=== PATIENT | male | born 1985 | race Two or more races ===

== ENCOUNTER 2021-08-07 19:53 | Emergency (ER) | payer OTHER ==
[~2021-08-07] VITALS: Ht 170.2 cm; Wt 90.7 kg
--- NOTE | 2021-08-07 20:11 | NUR ---
[facility] mtz in [facility] - 08/07/21 at 2011 by JSARMHOLLAND ROOM ASSIGNMENT: [id number] TELE
--- NOTE | 2021-08-07 20:56 | NUR ---
DR. LUQUE AT PT'S BEDSIDE
[2021-08-07] MEDS ORDERED: IBUPROFEN 600 MG TABLET ONE ×2 (21:21→21:26)
--- NOTE | 2021-08-07 21:25 | NUR ---
PT RETURNED TO ER BED [address] VIA KEILA
[2021-08-07] MEDS ORDERED: IBUPROFEN 600 MG TABLET PO ONE (21:30)
[2021-08-07 21:58] VITALS: BP 147/77
--- NOTE | 2021-08-07 21:58 | NUR ---
Patient discharged to home in stable condition. Written and verbal after care instructions given. Patient verbalizes understanding of instruction.
== END 2021-08-07 21:59 | disposition home or self-care (01) ==
LOC: ER 20:05
DX: S06.0X9A Concussion with loss of consciousness of unspecified duration, initial encounter (principal); S00.83XA Contusion of other part of head, initial encounter; W18.30XA Fall on same level, unspecified, initial encounter; Y93.01 Activity, walking, marching and hiking; Y92.89 Other specified places as the place of occurrence of the external cause; Y99.8 Other external cause status
CPT/HCPCS: 70450-TC; 70486-TC; 72125-TC